=== PATIENT | male | born 1955 | race Caucasian/White ===

== ENCOUNTER 2018-12-21 16:11 | Emergency (ER) | payer SELFPAY ==
[2018-12-21 16:12] VITALS: BP 167/92; PULSE 109; RESP 16; TEMP 36.8; O2SAT 98; BMI 26.5
--- NOTE | 2018-12-21 16:29 | ED.VIS.GEN ---
History of Present Illness Chief Complaint: Bite Detail of Chief Complaint: Bite to left hand Informant: Patient Onset: Yesterday Current Severity: Mild Maximum Severity: Mild Narrative: Patient was at work last night when he thinks he was bit by a bug on his left hand. He has continued redness and itching around the wound today. He has not taken anything for the symptoms. Past Medical History - Allergies and Home Meds Allergies/Adverse Reactions: Allergies No Known Allergies Allergy (Verified 12/21/18 16:13) Primary Care Physician: NOT,DEFINED [Primary Care Provider] - Prior records reviewed: Yes Past Medical History: - - Reviewed Review of Systems General: Denies: Chills, Fever Eyes: Denies: Visual changes - bilaterally ENT: Denies: Bilateral ear pain Cardiovascular: Denies: Chest pain Respiratory: Denies: Dyspnea Gastrointestinal: Denies: Abdominal pain Musculoskeletal: Reports: Arthralgias, Extremity Pain Skin: Reports: Rash Neurological: Denies: Headache Physical Exam Vital Signs/Narrative: Vital Signs Temp Pulse Resp BP Pulse Ox 12/21/18 16:12 98.3 F 109 H 16 167/92 H 98 Inital Vital Signs reviewed: Yes General: Well nourished, Well developed Head: Normocephalic ENT: Moist mucous membranes Neck: Supple Cardiovascular: Regular rate, Regular rhythm Respiratory: No distress Extremities: - - Small scabbed wound to the dorsum of the left hand with surrounding erythema measuring approximately 5 cm in diameter. This is consistent with a localized allergic reaction. There is no fluctuance or sign of infection. Range of motion of all digits is normal. Normal cap refill. Skin: - - As above Neurological: Alert, Oriented x3, Normal Strength, Normal Sensation Psychological: Normal affect Diagnostic/Tx/Re-eval - Medical Decision Making Patient be treated with a course of Benadryl, first dose given here. Area of erythema is outlined and he will monitor his response. ED Disposition - Plan for ED Patient: Disposition: Home or Assisted Living Diagnosis: Bug bite of hand Instructions: ALLERGIC REACTION, Insect (Local) Prescriptions: DiphenhydrAMINE [Benadryl] 50 mg PO TID PRN PRN #20 capsule PRN Reason: Allergies Referrals: Fast,Fatimah, DO [NON-STAFF] - As Needed
[2018-12-21] MEDS: DiphenhydrAMINE 25 MG Capsule 50 MG PO (16:38)
== END 2018-12-21 16:42 | disposition home or self-care (01) ==
LOC: ED 16:36
PROVIDERS: Emergency Provider Emergency Medicine
DX: S60.569A Insect bite (nonvenomous) of unspecified hand, initial encounter (principal); W57.XXXA Bitten or stung by nonvenomous insect and other nonvenomous arthropods, initial encounter; Y93.89 Activity, other specified; Y92.89 Other specified places as the place of occurrence of the external cause; Y99.8 Other external cause status
CPT/HCPCS: 99283

== ENCOUNTER → 2019-04-20 09:54 | Outpatient (CLI) | payer BC, SELFPAY ==
[2019-04-20 09:38] VITALS: BMI 26.5
--- NOTE | 2019-04-20 09:55 | RAD_ITS ---
STUDY: X-RAY CHEST REASON FOR EXAM: Male, 63 years old. COUGH X 2 WKS, COLD LIKE SYMPTOMS TECHNIQUE: PA and lateral views of the chest. COMPARISON: None. FINDINGS: The lungs are clear and expanded. There is no demonstrated pleural abnormality. Normal size heart. Normal mediastinum and sergei. Normal visualized pulmonary arteries. There is atherosclerotic calcification of the aortic arch with tortuosity. There is demineralization of the osseous structures. Increased kyphosis. Normal visualized ribs, clavicles, and shoulders. There is no demonstrated abnormality of the visualized soft tissue structures of the upper abdomen. RAD/Chest PA and Lateral IMPRESSION: No acute abnormality is seen. Electronically Signed: Zay Price, at 10:26 EST , Service support ,
== END ==
LOC: HPRAD 09:55
PROVIDERS: Referring Provider Physician Assistant; Visit Provider Physician Assistant
DX: R05 Cough (principal)
CPT/HCPCS: 71046

== ENCOUNTER 2021-05-21 11:19 | Outpatient (CLI) | payer BC, SELFPAY ==
--- NOTE | 2021-05-21 11:25 | RAD_ITS ---
STUDY: X-RAY - RIGHT KNEE REASON FOR EXAM: Male, 65 years old. KNEE PAIN TECHNIQUE: 4 view(s) of the knee. COMPARISON: None. FINDINGS: Normal visualized distal femur. Normal visualized proximal tibia and fibula. Normal proximal tibiofibular articulation. Normal medial femorotibial compartment. Normal lateral femorotibial compartment. Normal patellofemoral articulation. There is a moderate volume joint effusion. The soft tissue structures are unremarkable. RAD/Knee 4 or More Views IMPRESSION: Effusion, as described above. MRI may be useful. Electronically Signed: Miguel Zaragoza MD at 16:49 EST ,
--- NOTE | 2021-05-21 11:26 | RAD_ITS ---
STUDY: X-RAY CHEST REASON FOR EXAM: Male, 65 years old. Chest pain, history of smoking TECHNIQUE: PA and lateral views of the chest. COMPARISON: 04/20/2019 FINDINGS: The lungs are clear and expanded. There is no demonstrated pleural abnormality. Normal size heart. Normal mediastinum and sergei. Normal visualized pulmonary arteries. There is atherosclerotic calcification of the aortic arch with tortuosity. Normal visualized thoracic spine. Normal visualized ribs, clavicles, and shoulders. There is no demonstrated abnormality of the visualized soft tissue structures of the upper abdomen. RAD/Chest PA and Lateral IMPRESSION: Normal x-ray examination of the chest. Electronically Signed: Jung Goyal MD at 17:10 EST ,
[2021-05-21 15:19] LABS: Absolute Lymphocyte Count 3.35 X10^3/uL (0.83-4.51); Basophil# 0.06 X10^3/uL; Basophil% 0.7 % (0-1); Eosinophil# 0.24 X10^3/uL; Eosinophils% 2.7 % (0-5); Hematocrit 38.9 % (40-54); Hemoglobin 12.6 g/dL (13.0-16.5); Lymphocyte # 3.35 X10^3/ul (0.83-4.51); Lymphocyte % 37.9 % (19-41); Mean Corp Hgb Conc 32.4 g/dL (32-36); Mean Corpuscular Hgb 31.2 pg (27.0-32.0); Mean Corpuscular Volume 96.3 fL (80-94); Mean Platelet Vol. 9.7 fl (6.2-12.0); Monocyte# 2.13 X10^3/uL; Monocyte% 24.1 % (0-10); NRBC Flagged by Analyzer 0 % (0-5); Neutrophil # 3.04 X10^3/uL (2.7-7.7); Neutrophil % 34.5 % (47-70); POSITIVE DIFFERENTIAL YES; Platelet Count 249 K/mm3 (150-450); Red Blood Count 4.04 M/mm3 (4.6-6.2); White Blood Count 8.8 K/mm3 (4.4-11.0)
[2021-05-21 15:40] LABS: Differential Indicated SCAN CRITERIA MET
[2021-05-21 15:56] LABS: ALB/GLOB Ratio 0.6 RATIO (0.9-2.4); AST(SGOT) 20 U/L (15-37); Alanine Aminotransfer ALT/SGPT 22 U/L (16-61); Albumin, Serum 3.2 g/dL (3.2-5.0); Alkaline Phosphatase 187 U/L (45-117); Anion Gap 7 (5-15); BUN 18 mg/dL (7-18); BUN/Creat Ratio 22.4 RATIO (10-20); Calcium,Total 8.6 mg/dL (8.5-10.1); Chloride 109 mmol/L (98-107); Cholesterol 110 mg/dL (200); EST Glomerular Filtration Rate 102 mL/min (>60); Est Glom Filt Rate - Afr Amer 124 mL/min (>60); Globulin 5.1 g/dL (2.2-4.2); Glucose 89 mg/dL (74-106); High Density Lipoprotein 37 mg/dL; Magnesium 1.6 mg/dL (1.6-2.6); Potassium 3.7 mmol/L (3.5-5.1); Protein, Total 8.3 g/dL (6.4-8.2); Sodium Level 139 mmol/L (136-145); Thyroid Stim Hormone (TSH) < 0.01 uIU/mL (0.358-3.74); Triglycerides 37 mg/dL; Uric Acid 6.6 mg/dL (3.5-7.2); Very Low Density Lipoprotein 7 mg/dL (5-40)
[2021-05-21 18:12] LABS: Differential Comment SCANNED
[2021-05-22 09:08] LABS: Free T3 3.7 pg/mL (2.18-3.98); T4 Free Direct 1.84 ng/dL (0.76-1.46)
== END 2021-05-21 23:59 | disposition home or self-care (01) ==
PROVIDERS: PCP Family Medicine; Referring Provider Family Medicine; Visit Provider Family Medicine
DX: Z01.818 Encounter for other preprocedural examination (principal); I48.91 Unspecified atrial fibrillation; I10 Essential (primary) hypertension; M25.569 Pain in unspecified knee; Z72.0 Tobacco use
CPT/HCPCS: 36415; 71046; 73564; 80053; 80061; 83735; 84439; 84443; 84481; 84550; 85025

== ENCOUNTER 2021-05-22 10:53 | Outpatient (CLI) | payer BC, SELFPAY ==
--- NOTE | 2021-05-22 11:01 | VDLE_ITS ---
Reason For Study: Edema RIGHT GSV is normal. CFV is compressible, spontaneous, phasic, competent and demonstrates normal augmentation. FV is compressible, spontaneous, phasic, competent and demonstrates normal augmentation. POP V is compressible, spontaneous, phasic, competent and demonstrates normal augmentation. T/P Trunk is compressible. PTV is compressible. RT PerV is compressible. Rt SSV is partially compressible with bright intraluminal echoes consistent with chronic SVT. Procedure This is a venous duplex using B-mode, color flow and spectral Doppler. Exam performed in department. A preliminary report was called and/or faxed to Dr. Santana. VL/Venous Duplex US, Unilateral Interpretation Summary There is no evidence of right lower extremity deep vein thrombosis. Right great saphenous vein appears patent and compressible segmentally. Chronic superficial thrombophlebit is right small saphenous vein Ordering Physician: Rob Santana Referring Physician: Rob Santana Performed By: Ena Cain, DHAVAL, RVT
== END 2021-05-22 23:59 | disposition home or self-care (01) ==
LOC: CVS 10:56
PROVIDERS: PCP Family Medicine; Referring Provider Family Medicine; Visit Provider Family Medicine
DX: R60.0 Localized edema (principal)
CPT/HCPCS: 93971

== ENCOUNTER 2021-05-28 10:46 | Outpatient (CLI) | payer BC, SELFPAY ==
[2021-05-28 13:13] LABS: Body Fluid QC Type(s) BF1Q; CRYSTALS, BODY FLUID MONOSODIUM URATE; Source- Body Fluid SYNOVIAL
[2021-05-29 14:14] LABS: Pathologist Review Reviewed
== END 2021-05-28 23:59 | disposition home or self-care (01) ==
LOC: LABSPEC 10:47
PROVIDERS: PCP Family Medicine; Referring Provider Family Medicine; Visit Provider Family Medicine
DX: E05.90 Thyrotoxicosis, unspecified without thyrotoxic crisis or storm (principal)
CPT/HCPCS: 89060

== ENCOUNTER 2021-06-17 12:30 | Outpatient (CLI) | payer BC, SELFPAY ==
--- NOTE | 2021-06-17 12:35 | ECHOD_ITS ---
Reason For Study: AFib Procedure This was a 2D Doppler, Color Flow transthoracic echocardiogram. Exam performed in department. Left Ventricle The estimated ejection fraction is 65 %. Unable to assess diastolic dysfunction. No regional wall motion abnormalities noted. Right Ventricle Normal RV size. Normal systolic function. Atria The left atrium is moderately enlarged. The right atrium is mildly enlarged. Mitral Valve There is moderate mitral annular calcification. There is no mitral valve stenosis. Trivial mitral valve insufficiency. Tricuspid Valve There is no tricuspid stenosis. Mild tricuspid valve insufficiency. Pulmonary artery systolic pressure is 30-35 mmHg. Aortic Valve Trisinus/trileaflet aortic valve. Moderate diffuse aortic valve thickening. There is no aortic stenosis. Mild (1+) aortic valve insufficiency. Pulmonic Valve There is no pulmonic valvular stenosis. No pulmonic valve insufficiency. Great Vessels Normal aortic root. Pericardium/Pleural No pericardial effusion. MMode/2D Measurements & Calculations LVIDd: 4.5 cm IVSd: 1.0 cm Ao root diam: 3.1 cm LVIDs: 3.1 cm LVPWd: 1.2 cm LA dimension: 4.5 cm RVDd: 4.9 cm FS: 31.5 % LAV(MOD-bp): 104.0 ml LA A4 area: 29.2 cm2 RA A4 area: 26.7 cm2 LAV(MOD-bp) Indexed: 52.6 ml/m2 LAV(MOD-sp2): 92.0 ml LAV(MOD-sp4): 104.0 ml Doppler Measurements & Calculations MV E max pratibha: 108.5 cm/sec Ao V2 max: 80.0 cm/sec AI max pratibha: 411.2 cm/sec Ao max P.6 mmHg AI max P.8 mmHg AI dec slope: 190.0 cm/sec2 AI P1/2t: 633.7 msec LV V1 max: 60.9 cm/sec MR max pratibha: 440.0 cm/sec PA V2 max: 89.9 cm/sec LV V1 max P.5 mmHg MR max P.4 mmHg TR max pratibha: 244.5 cm/sec TR max P.0 mmHg ECHO/Echo Complete Interpretation Summary The estimated ejection fraction is 65 %. Unable to assess diastolic dysfunction. The left atrium is moderately enlarged. The right atrium is mildly enlarged. Trivial mitral valve insufficiency. Mild tricuspid valve insufficiency. Moderate diffuse aortic valve thickening. Mild (1+) aortic valve insufficiency. Ordering Physician: Rob Santana Referring Physician: Rob Santana Performed By: Fito Loaiza RCS
--- NOTE | 2021-06-17 12:36 | EKG12_ITS ---
Test Reason : PREOP Blood Pressure : / mmHG Vent. Rate : 064 BPM Atrial Rate : 100 BPM P-R Int : 000 ms QRS Dur : 134 ms QT Int : 424 ms P-R-T Axes : 000 078 043 degrees QTc Int : 437 ms Atrial fibrillation Right bundle branch block Abnormal ECG Confirmed by LESLY REDDY, JUAN ([id number]), senior technical editor JADE CARMEN ([id number]) on 06/18/2021 10:43:43 AM Referred By: Rob Santana Confirmed By:JUAN GRACE MD
== END 2021-06-17 23:59 | disposition home or self-care (01) ==
LOC: PSN 12:33
PROVIDERS: PCP Family Medicine; Referring Provider Family Medicine; Visit Provider Family Medicine
DX: I48.91 Unspecified atrial fibrillation (principal)
CPT/HCPCS: 93005; 93306

== ENCOUNTER → 2021-07-10 | Outpatient (CLI) | payer BC, SELFPAY ==
--- NOTE | 2021-07-10 08:58 | NM_ITS ---
CLINICAL: Male, 66 years old. HYPERTHYROIDISM THYROID IMAGING STUDY TECHNIQUE: The patient was administered a 305 uCi I-123 capsule by mouth. COMPARISON STUDIES : NM - None. CR - Not available for review at this time. CT - Not available for review at this time. MR - Not available for review at this time. US - Not available for review at this time. FINDINGS: The 4-hour I-123 radioactive iodine thyroidal uptake was calculated to be 24% (normal 6 to 20%). The 23.5-hour I-123 radioactive iodine thyroidal uptake was calculated to be 61% (normal 5 to 35%). The I-123 thyroid scan demonstrates homogeneous radiopharmaceutical concentration throughout both lobes of a U-shaped thyroid gland. There are no colloidal parenchymal nodules noted in either lobe of the thyroid gland. NM/Thyroid Uptake Single or Mult IMPRESSION: Elevated I-123 radioactive iodine thyroidal uptakes. No hot or cold lesions. Electronically Signed: Kd Terry MD ([place]) at 9:20 EDT ,
== END | disposition home or self-care (01) ==
LOC: NM 08:55
PROVIDERS: PCP Family Medicine; Visit Provider Family Medicine
DX: E05.90 Thyrotoxicosis, unspecified without thyrotoxic crisis or storm (principal)
CPT/HCPCS: 78012; A9516

== ENCOUNTER → 2021-07-15 | Outpatient (CLI) | payer BC, SELFPAY ==
[2021-07-15 13:31] LABS: Free T3 4.7 pg/mL (2.18-3.98); T3 Uptake 39 % (33-40); T4 Free Direct 2.08 ng/dL (0.76-1.46); Thyroid Stim Hormone (TSH) < 0.01 uIU/mL (0.358-3.74)
== END | disposition home or self-care (01) ==
LOC: MFPLAB 09:28
PROVIDERS: PCP Family Medicine; Visit Provider Family Medicine
DX: E05.90 Thyrotoxicosis, unspecified without thyrotoxic crisis or storm (principal)
CPT/HCPCS: 36415; 84439; 84443; 84479; 84481

== ENCOUNTER → 2021-07-29 | Outpatient (CLI) | payer BC, SELFPAY ==
[2021-07-29 10:55] LABS: ALB/GLOB Ratio 0.8 RATIO (0.9-2.4); AST(SGOT) 15 U/L (15-37); Alanine Aminotransfer ALT/SGPT 22 U/L (16-61); Albumin, Serum 3.3 g/dL (3.2-5.0); Alkaline Phosphatase 163 U/L (45-117); Anion Gap 8 (5-15); BUN 10 mg/dL (7-18); BUN/Creat Ratio 12.9 RATIO (10-20); Calcium,Total 8.6 mg/dL (8.5-10.1); Chloride 107 mmol/L (98-107); Creatinine, Serum 0.77 mg/dL (0.70-1.30); EST Glomerular Filtration Rate 107 mL/min (>60); Est Glom Filt Rate - Afr Amer 129 mL/min (>60); Globulin 4.2 g/dL (2.2-4.2); Glucose 99 mg/dL (74-106); Potassium 4.3 mmol/L (3.5-5.1); Protein, Total 7.5 g/dL (6.4-8.2); Sodium Level 139 mmol/L (136-145); Uric Acid 6.7 mg/dL (3.5-7.2)
== END | disposition home or self-care (01) ==
LOC: MFPLAB 09:45
PROVIDERS: PCP Family Medicine; Visit Provider Family Medicine
DX: F10.10 Alcohol abuse, uncomplicated (principal); M10.9 Gout, unspecified
CPT/HCPCS: 36415; 80053; 84550

== ENCOUNTER → 2021-09-09 | Outpatient (CLI) | payer BC, SELFPAY ==
--- NOTE | 2021-09-09 09:08 | NM_ITS ---
Nuclear medicine radiopharmaceutical therapy by oral administration (documentation only) INDICATION: Hyperparathyroidism No images provided. Therapy performed by on-site provider (please see procedural report). 15.5 mCi of I-131 administered orally according to technologist''s documentation. NM/Therapy I-131 IMPRESSION: I-131 therapy performed by on site provider (please see procedure report). Electronically Signed: Kd Terry MD ([place]) at 16:32 EDT Reading Location ID and State: / [place] , Service support ,
== END | disposition home or self-care (01) ==
LOC: NM 09:07
PROVIDERS: PCP Family Medicine; Referring Provider Internal Medicine Endocrinology, Diabetes & Metabolism; Visit Provider Internal Medicine Endocrinology, Diabetes & Metabolism
DX: E05.00 Thyrotoxicosis with diffuse goiter without thyrotoxic crisis or storm (principal)
CPT/HCPCS: 79005; A9517

== ENCOUNTER → 2021-10-01 | Outpatient (CLI) | payer BC, SELFPAY ==
[2021-10-01 09:52] LABS: Uric Acid 8.2 mg/dL (3.5-7.2)
[2021-10-01 10:05] LABS: Free T3 11.4 pg/mL (2.18-3.98); T4 Free Direct 4.02 ng/dL (0.76-1.46); Thyroid Stim Hormone (TSH) < 0.01 uIU/mL (0.358-3.74)
== END | disposition home or self-care (01) ==
LOC: LAB 08:18
PROVIDERS: Internal Medicine Endocrinology, Diabetes & Metabolism; PCP Family Medicine; Visit Provider Family Medicine
DX: E05.00 Thyrotoxicosis with diffuse goiter without thyrotoxic crisis or storm (principal); M10.9 Gout, unspecified
CPT/HCPCS: 36415; 84439; 84443; 84481; 84550

== ENCOUNTER → 2022-01-07 | Outpatient (CLI) | payer MEDICARE, SELFPAY ==
[2022-01-07 07:45] LABS: Free T3 0.6 pg/mL (2.18-3.98); T4 Free Direct 0.15 ng/dL (0.76-1.46)
[2022-01-07 07:49] LABS: Anion Gap 7 (5-15); BUN 25 mg/dL (7-18); BUN/Creat Ratio 16.8 RATIO (10-20); Calcium,Total 9.6 mg/dL (8.5-10.1); Chloride 104 mmol/L (98-107); Creatinine, Serum 1.49 mg/dL (0.70-1.30); EST Glomerular Filtration Rate 50 mL/min (>60); Est Glom Filt Rate - Afr Amer 61 mL/min (>60); Glucose 119 mg/dL (74-106); Potassium 4.4 mmol/L (3.5-5.1); Sodium Level 137 mmol/L (136-145); Uric Acid 7.1 mg/dL (3.5-7.2)
== END | disposition home or self-care (01) ==
LOC: LAB 06:45
PROVIDERS: PCP Family Medicine; Referring Provider Internal Medicine Endocrinology, Diabetes & Metabolism; Visit Provider Internal Medicine Endocrinology, Diabetes & Metabolism
DX: I10 Essential (primary) hypertension (principal); M10.9 Gout, unspecified; E05.90 Thyrotoxicosis, unspecified without thyrotoxic crisis or storm
CPT/HCPCS: 80048; 84439; 84443; 84481; 84550